=== PATIENT | male | born 1970 | race African-American/Black ===

== ENCOUNTER 2022-09-27 09:38 | Emergency (ER) | payer SELFPAY ==
[~2022-09-27] VITALS: Ht 188 cm; Wt 100.0 kg
[2022-09-27 09:59] VITALS: BP 138/78
[2022-09-27 10:01] VITALS: BP 155/89
[2022-09-27] MEDS ORDERED: ALLERGY RELF10 M3 PO (10:07)
[2022-09-27] MEDS ORDERED: PREDNISONE50 MG PO (10:07)
[2022-09-27 10:15] VITALS: BP 116/74
[2022-09-27 10:25] VITALS: BP 116/74
== END 2022-09-27 10:30 | disposition home or self-care (01) | DRG 607 ==
LOC: ED 09:38
DX: L24.3 Irritant contact dermatitis due to cosmetics (principal); T49.4X5A Adverse effect of keratolytics, keratoplastics, and other hair treatment drugs and preparations, initial encounter